=== PATIENT | male | born 1990 | race Caucasian/White ===

== ENCOUNTER 2020-01-06 13:26 | Emergency (ER) | payer MEDICAID ==
[~2020-01-06] VITALS: Ht 165.1 cm; Wt 49.9 kg
[2020-01-06 14:00] VITALS: BP_SYST 142
[2020-01-06] MEDS ORDERED: NACL 0.9% 1,000 ML IV ONE (15:15)
[2020-01-06] MEDS ORDERED: KETOROLAC TROMETHAMINE 30 MG VIAL IVP ONE (15:15)
[2020-01-06] MEDS ORDERED: LORazepam 2 MG/ML VIAL IVP ONE (16:00)
[2020-01-06 19:48] VITALS: BP_SYST 105
== END 2020-01-06 19:48 | disposition home or self-care (01) ==
LOC: SED 13:26
DX: N39.0 Urinary tract infection, site not specified (principal); F11.23 Opioid dependence with withdrawal; F12.90 Cannabis use, unspecified, uncomplicated
CPT/HCPCS: 81002; 96361; 96374; 96375; 99284; J1885; J2060; J7030